=== PATIENT | female | born 1955 | race Two or more races ===

== ENCOUNTER 2017-03-24 15:05 | Emergency (ER) | payer BC ==
[~2017-03-24] VITALS: Ht 170.2 cm; Wt 65.8 kg
[2017-03-24] MEDS ORDERED: SODIUM CHLORIDE 0.9% 500 ML IV ONE (15:22)
[2017-03-24] MEDS ORDERED: HYDROmorphone HCL 2 MG/ML VL IV ONE ×2 (15:30→17:15)
[2017-03-24] MEDS ORDERED: ONDANSETRON HCL 4 MG/2 ML VIAL IV ONE (15:30)
[2017-03-24] MEDS ORDERED: DIAZEPAM 5 MG/ML 2ML SYRG IV ONE (15:30)
[2017-03-24 15:44] LABS: Basophils # (auto) 0 uL; CONDITION Y; DEFINITIVE SEE PRINTOUT; Eosinophils # (auto) 0.1 uL; Lymphocytes # (auto) 1.3 uL; Mean Platelet Volume 7.2 fL (7.4-10.4)
[2017-03-24 15:48] LABS: Basophils % (auto) 0.2 % (0.0-2.0); Hematocrit 34.1 % (36.0-46.0); Hemoglobin 10.9 g/dL (12.2-16.2); Mean Corpuscular Hemoglobin 27.7 pg (28.0-32.0); Mean Corpuscular Volume 86.7 fL (80.0-100.0); Monocytes # (auto) 0.9 uL; Monocytes % (auto) 8.8 % (0.0-12.0); Neutrophils # (auto) 7.7 uL; Platelet Count (auto) 336 10^3/uL (140-450)
[2017-03-24 16:00] LABS: INR 0.97 (0.9-1.15); Partial Thromboplastin Time 28.9 sec (22.64-33.71); Prothrombin Time 10.6 sec (9.37-12.3)
[2017-03-24 16:02] LABS: Albumin 3.8 g/dL (3.4-5.0); BUN/Creatinine Ratio 14.1; Bilirubin, Total 0.3 mg/dL (0.2-1.0); Calcium 9.3 mg/dL (8.5-10.1); Potassium 3.7 mmol/L (3.5-5.1); Total Protein 7.2 g/dL (6.4-8.2)
[2017-03-24] MEDS ORDERED: ETOMIDATE (2MG/ML) 20ML VIAL IV ONE ×3 (16:30→18:00)
[2017-03-24 17:05] VITALS: BP 156/84
== END 2017-03-24 18:59 | disposition home or self-care (01) ==
LOC: EDBD 15:05 → ER 15:21
DX: S73.004A Unspecified dislocation of right hip, initial encounter (principal); Z90.710 Acquired absence of both cervix and uterus; Z90.49 Acquired absence of other specified parts of digestive tract; Z96.641 Presence of right artificial hip joint; W18.39XA Other fall on same level, initial encounter; Y93.89 Activity, other specified; Y92.89 Other specified places as the place of occurrence of the external cause; Y99.2 Volunteer activity
CPT/HCPCS: 27265; 36415; 73501; 73502; 80053; 85025; 85610; 85730; 94761; 96361; 96374; 96375; 99152; 99285; J1170; J2405; J7030

== ENCOUNTER 2017-03-28 15:06 | Emergency (ER) | payer BC ==
[~2017-03-28] VITALS: Ht 172.7 cm; Wt 65.8 kg
[2017-03-28 15:13] VITALS: BP 106/79
[2017-03-28] MEDS ORDERED: PROMETHAZINE HCL 25 MG/ML 1ML IM ONE (16:30)
[2017-03-28] MEDS ORDERED: MEPERIDINE HCL (50 MG/ML) 1 ML VIAL IM ONE (16:30)
== END 2017-03-28 17:06 | disposition home or self-care (01) ==
LOC: ER 15:07
DX: G89.29 Other chronic pain (principal); M25.551 Pain in right hip; M54.5 Low back pain; M19.90 Unspecified osteoarthritis, unspecified site; I10 Essential (primary) hypertension; E07.89 Other specified disorders of thyroid
CPT/HCPCS: 73502; 96372; 99284; J2175; J2550

== ENCOUNTER 2017-04-18 14:51 | Emergency (ER) | payer BC ==
[~2017-04-18] VITALS: Ht 170.2 cm; Wt 65.3 kg
[2017-04-18 15:54] VITALS: BP 144/77
[2017-04-18] MEDS ORDERED: PROMETHAZINE HCL 25 MG/ML 1ML IM ONE (16:45)
[2017-04-18] MEDS ORDERED: MORPHINE SULFATE 10 MG/ML INJ 1ML SDV IM ONE (16:45)
== END 2017-04-18 17:42 | disposition home or self-care (01) ==
LOC: EDBD 14:51 → ER 14:59
DX: S76.011A Strain of muscle, fascia and tendon of right hip, initial encounter (principal); S20.219A Contusion of unspecified front wall of thorax, initial encounter; E07.89 Other specified disorders of thyroid; G89.29 Other chronic pain; Z90.710 Acquired absence of both cervix and uterus; Z90.89 Acquired absence of other organs; Z88.8 Allergy status to other drugs, medicaments and biological substances; V49.49XA Driver injured in collision with other motor vehicles in traffic accident, initial encounter; Y93.89 Activity, other specified; Y99.8 Other external cause status; Y92.410 Unspecified street and highway as the place of occurrence of the external cause
CPT/HCPCS: 71020; 73130; 73502; 96372; 99284; J2270; J2550

== ENCOUNTER 2017-07-18 23:39 | Emergency (ER) | payer BC ==
[~2017-07-18] VITALS: Ht 160 cm; Wt 63.5 kg
[2017-07-19] MEDS ORDERED: ONDANSETRON HCL 4 MG/2 ML VIAL IV ONE ×3 (01:00→06:30)
[2017-07-19] MEDS ORDERED: HYDROmorphone HCL 2 MG/ML VL IV ONE ×4 (01:00→06:30)
[2017-07-19] MEDS ORDERED: ETOMIDATE (2MG/ML) 20ML VIAL IV ONE ×2 (03:30→03:57)
[2017-07-19] MEDS ORDERED: SUCCINYLCHOLINE CHLORIDE 20 MG/ML 10ML VIAL IV ONE (03:30)
[2017-07-19] MEDS ORDERED: LORazepam 2MG/ML-1ML VIAL ONE (03:48)
[2017-07-19] MEDS ORDERED: LORazepam 2MG/ML-1ML VIAL IV ONE (03:55)
[2017-07-19 06:53] VITALS: BP 108/47
== END 2017-07-19 07:29 | disposition short-term general hospital (02) ==
LOC: EDBD 23:39 → ER 23:46
DX: S73.004A Unspecified dislocation of right hip, initial encounter (principal); M24.451 Recurrent dislocation, right hip; E07.89 Other specified disorders of thyroid; Z90.710 Acquired absence of both cervix and uterus; Z90.89 Acquired absence of other organs; Z88.8 Allergy status to other drugs, medicaments and biological substances; X58.XXXA Exposure to other specified factors, initial encounter; Y93.89 Activity, other specified; Y99.8 Other external cause status; Y92.89 Other specified places as the place of occurrence of the external cause
CPT/HCPCS: 27250; 73501; 73502; 96374; 96375; 96376; 99152; 99285; J1170; J2060; J2405

== ENCOUNTER 2018-07-07 07:04 | Day surgery (SDC) | payer BC ==
[~2018-07-07] VITALS: Ht 170.2 cm; Wt 74.8 kg
[2018-07-07] MEDS ORDERED: MIDAZOLAM HCL 5 MG/ML-1ML VIAL IV ONE (09:30)
[2018-07-07] MEDS ORDERED: ETOMIDATE (2MG/ML) 20ML VIAL IV ONE ×2 (09:30→10:15)
[2018-07-07] MEDS ORDERED: SODIUM CHLORIDE 0.9% 1,000 ML IV ONE (10:15)
[2018-07-07 11:04] LABS: Basophils # (auto) 0 uL; Eosinophils # (auto) 0.1 uL; Hemoglobin 11.2 g/dL (12.2-16.2); Lymphocytes # (auto) 1.4 uL; Lymphocytes % (auto) 20.5 % (10.0-50.0); Monocytes # (auto) 0.6 uL; Neutrophils # (auto) 4.5 uL; Red Cell Distribution Width 18.5 % (11.8-14.3)
[2018-07-07 11:05] LABS: Basophils % (auto) 0.6 % (0.0-2.0); Eosinophils % (auto) 1.6 % (0.0-7.0); Hematocrit 36.1 % (36.0-46.0); Mean Corpuscular Hgb Conc. 30.9 g/dL (32.0-36.0); Mean Corpuscular Volume 87.2 fL (80.0-100.0); Monocytes % (auto) 9.3 % (0.0-12.0); Nucleated Red Blood Cells % 0.1 %; Platelet Count (auto) 355 10^3/uL (140-450); Red Blood Cells 4.14 10^6/uL (4.0-5.20); White Blood Cell 6.6 10^3/uL (4.4-10.8)
[2018-07-07] MEDS ORDERED: HYDROmorphone HCL 2 MG/ML VL IV ONE (11:15)
[2018-07-07] MEDS ORDERED: ONDANSETRON HCL 4 MG/2 ML VIAL IV ONE ×2 (11:15→13:00)
[2018-07-07 11:19] LABS: Albumin 3.4 g/dL (3.4-5.0); Calcium 8.3 mg/dL (8.5-10.1); Magnesium 2.7 mg/dL (1.6-2.6); Potassium 3.9 mmol/L (3.5-5.1)
[2018-07-07 11:22] LABS: BUN/Creatinine Ratio 14.1; Bilirubin, Total 0.3 mg/dL (0.2-1.0); Total Protein 6.8 g/dL (6.4-8.2)
[2018-07-07] MEDS ORDERED: HYDROmorphone HCL 2 MG/ML VL IV PRN (13:00)
[2018-07-07] MEDS ORDERED: NALOXONE HCL 0.4 MG/ML VIAL IV PRN (13:00)
[2018-07-07] MEDS ORDERED: MIDAZOLAM HCL 1MG/1ML-2 ML VIAL ONE (13:07)
[2018-07-07] MEDS ORDERED: METOCLOPRAMIDE HCL 5MG/ml INJ 2ml VIAL ONE (13:09)
[2018-07-07] MEDS ORDERED: PROPOFOL 10 MG/ML 20 ML IV ONE (13:09)
[2018-07-07] MEDS ORDERED: fentaNYL CITRATE 100 MCG/2 ML VL ONE (13:18)
[2018-07-07] MEDS: HYDROmorphone HCL 2 MG/ML VL IV PRN ×4 (14:34→15:15)
[2018-07-07 15:57] VITALS: BP 131/97
== END 2018-07-07 16:20 | disposition short-term general hospital (02) ==
LOC: EDBD 07:04 → ER 07:12 → OR 1 12:56 → ER 16:20
PROVIDERS: ATTEND Orthopaedic Surgery
DX: T84.020A Dislocation of internal right hip prosthesis, initial encounter (principal); E03.9 Hypothyroidism, unspecified; I10 Essential (primary) hypertension; M19.90 Unspecified osteoarthritis, unspecified site; Z96.641 Presence of right artificial hip joint; Y83.8 Other surgical procedures as the cause of abnormal reaction of the patient, or of later complication, without mention of misadventure at the time of the procedure; Y92.89 Other specified places as the place of occurrence of the external cause
CPT/HCPCS: 27266; 36415; 71045; 73501; 76000; 80053; 83735; 85025; 93005; J1170; J2250; J2405; J2704; J2765; J3010; J7030